=== PATIENT | female | born 1980 | race Caucasian/White ===

== ENCOUNTER 2017-01-20 17:53 | Emergency (ER) | payer OTHER ==
[~2017-01-20] VITALS: Ht 172.7 cm; Wt 104.3 kg
[~2017-01-20 17:53] MED LIST: NORCO 5/325 MG1 TAB PO
[2017-01-20 18:57] VITALS: BP 119/76
--- NOTE | 2017-01-20 20:15 | NUR ---
PATIENT LEFT WITHOUT BEING SEEN BY DR. MADDEN. NO FURTHER CARE PROVIDED FOR PATIENT.
== END 2017-01-20 20:15 | disposition left against medical advice (07) ==
LOC: MED 17:53
DX: M53.3 Sacrococcygeal disorders, not elsewhere classified (principal); Z53.21 Procedure and treatment not carried out due to patient leaving prior to being seen by health care provider

== ENCOUNTER 2018-01-14 10:42 | Emergency (ER) | payer OTHER ==
[~2018-01-14] VITALS: Ht 172.7 cm; Wt 107.6 kg
[~2018-01-14 10:42] MED LIST changes: +ACET-8386 PO; -NORCO 5/325 MG1 TAB PO
[2018-01-14 10:48] VITALS: BP 120/46
--- NOTE | 2018-01-14 11:00 | NUR ---
AFTER PROVIDING URINE SAMPLE PT AMBULATES BACK TO THE LOBBY
--- NOTE | 2018-01-14 11:55 | NUR ---
37Y/F C/O HEAD ACHE, DIZZINESS, N/V X 1 WK WORSE SINCE YESTERDAY WITH SOME ABDOMINAL PAIN; LMP 11/26/2017 A0; AROUND 6 WKS .ER MADE AWARE OF PT STATUS.
[2018-01-14] MEDS ORDERED: ACETAMINOPHEN EXTRA STRENGTH 500 MG TAB PO ONE (12:20)
[2018-01-14] MEDS ORDERED: ONDANSETRON 4 MG ODT SL PRN (12:20)
[2018-01-14 12:55] VITALS: BP 115/56
--- NOTE | 2018-01-14 12:55 | NUR ---
Patient discharged with v/s stable. Written and verbal after care instructions given and explained. Patient alert, oriented and verbalized understanding of instructions. Ambulatory with steady gait. All questions addressed prior to discharge. ID band removed. Patient advised to follow up with PMD. Rx of Zofran ODT 4mg, Pyridoxine 50mg and Prental Plus Tablet given. Patient educated on indication of medication including possible reaction and side effects. Opportunity to ask questions provided and answered.
== END 2018-01-14 12:55 | disposition home or self-care (01) ==
LOC: MED 10:42
DX: O21.0 Mild hyperemesis gravidarum (principal); Z3A.01 Less than 8 weeks gestation of pregnancy; Z90.49 Acquired absence of other specified parts of digestive tract
CPT/HCPCS: 99283; S0119